=== PATIENT | male | born 2000 | race Caucasian/White ===

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

== ENCOUNTER → 2018-10-16 | Outpatient (CLI) | payer MEDICAID | LOC: FIMAGING 10:49 | PROVIDERS: ATTEND Surgery | DX: R93.9 Diagnostic imaging inconclusive due to excess body fat of patient (principal) ==

== ENCOUNTER → 2018-10-17 | Outpatient (CLI) | payer MEDICAID | LOC: FIMAGING 12:28 | PROVIDERS: ATTEND Surgery | DX: J93.9 Pneumothorax, unspecified (principal) ==